=== PATIENT | female | born 1990 | race Caucasian/White ===

== ENCOUNTER 2023-04-17 10:13 | Outpatient (REF) | payer BC, SELFPAY ==
[2023-04-17 16:20] LABS: COVID-19 PCR Negative (Negative); Influenza A PCR Negative (Negative); Influenza B PCR Negative (Negative); RSV PCR Negative (Negative); Source NASOPHARYNX
== END 2023-04-17 10:14 | disposition home or self-care (01) ==
LOC: LBO 10:13
PROVIDERS: PCP Nurse Practitioner; Visit Provider Student in an Organized Health Care Education/Training Program
DX: R52 Pain, unspecified (principal); R68.83 Chills (without fever)
CPT/HCPCS: 87637